=== PATIENT | male | born 1930 | race Caucasian/White ===

== ENCOUNTER 2019-02-11 10:01 | Observation (INO) | payer OTHER ==
[~2019-02-11] VITALS: Ht 182.9 cm; Wt 105.5 kg
[2019-02-11 10:39] LABS: BASOPHILS ABSOLUTE AUTO 0.05 K/mm3 (0.00-0.23); BASOPHILS PERCENT AUTO 1 % (0-2); EOSINOPHILS ABSOLUTE AUTO 0.13 K/mm3 (0.00-0.68); EOSINOPHILS PERCENT AUTO 2 % (0-6); Hematocrit 42.4 % (37.0-53.0); IMMATURE GRAN ABSOLUTE AUTO 0.01 K/mm3 (0.00-0.10); IMMATURE GRAN PERCENT AUTO 0 % (0-1); LYMPHOCYTES ABSOLUTE AUTO 1.02 K/mm3 (0.84-5.20); LYMPHOCYTES PERCENT AUTO 18 % (21-46); MONOCYTES ABSOLUTE AUTO 0.48 K/mm3 (0.16-1.47); MONOCYTES PERCENT AUTO 9 % (4-13); Mean Corpuscular HGB 29.9 pg (26.0-34.0); Mean Corpuscular Volume 91 fL (80-100); NEUTROPHILS ABSOLUTE AUTO 3.96 K/mm3 (1.96-9.15); NEUTROPHILS PERCENT AUTO 70 % (41-73); Platelet Count 123 K/mm3 (150-400); RDW Coefficient Variation 13.2 % (11.7-14.2); RDW Standard Deviation 43.4 fL (35.1-46.3); Red Blood Cell Count 4.68 M/mm3 (4.30-5.90); White Blood Cell Count 5.65 K/mm3 (4.00-11.30)
[2019-02-11 10:52] LABS: Alanine Aminotransfer (ALT/SGP 12 U/L (12-78); Albumin, Blood 3.1 g/dL (3.4-5.0); Alk Phos 54 U/L (50-136); Anion Gap 6 mmol/L (6-16); Aspartate Aminotrans (AST/SGOT 13 U/L (12-37); Bilirubin, Total 0.5 mg/dL (0.1-1.0); Blood Urea Nitrogen 21 mg/dL (8-24); CO2, Blood 30 mmol/L (21-32); Calcium, Blood 8.3 mg/dL (8.5-10.1); Chloride, Blood 106 mmol/L (98-108); Creatinine, Blood 1.31 mg/dL (0.60-1.20); Globulin, Blood 3.1 g/dL (2.2-4.0); Glomerular Filtration Rate 55 (60-); Glucose, Blood 194 mg/dL (70-99); Potassium, Blood 4.1 mmol/L (3.5-5.5); Sodium, Blood 142 mmol/L (136-145); Total Protein, Blood 6.2 g/dL (6.4-8.2); Troponin I <0.015 ng/mL (0.000-0.040)
[2019-02-11] MEDS ORDERED: AMLO5 PO (12:06)
[2019-02-11] MEDS ORDERED: CALCIUM 500 +1 EAC3 PO (12:07)
[2019-02-11] MEDS ORDERED: ASPI81CH PO (12:07)
[2019-02-11] MEDS ORDERED: CYAN500 PO (12:07)
[2019-02-11] MEDS ORDERED: ENAL20 PO (12:08)
[2019-02-11] MEDS ORDERED: FURO20 PO (12:08)
[2019-02-11] MEDS ORDERED: DULO60 PO (12:08)
[2019-02-11] MEDS ORDERED: Gabapentin600 MG PO (12:09)
[2019-02-11] MEDS ORDERED: Norco 10-325 T1 EACH PO (12:09)
[2019-02-11] MEDS ORDERED: GLIP10 PO (12:09)
[2019-02-11] MEDS ORDERED: NITR.4SL SL (12:10)
[2019-02-11] MEDS ORDERED: Pravachol80 MG PO (12:10)
[2019-02-11] MEDS ORDERED: METO50 PO (12:10)
[2019-02-11 12:51] LABS: Source, Urine Clean Catch
[2019-02-11 12:55] LABS: Bilirubin, Urine Neg (Neg); Blood, Urine 3+ (Neg); Glucose Qualitative, Urine Neg (Neg); Ketones, Urine Neg (Neg); Leukocyte Esterase, Urine 3+ (Neg); Nitrite, Urine Neg (Neg); Protein, Urine 2+ (Neg); Specific Gravity, Urine 1.015 (1.003-1.022); Urobilinogen, Urine NORM (Normal); pH, Urine 6.5 (5.0-8.0)
[2019-02-11 13:05] LABS: Appearance, Urine Hazy (Clear); Color, Urine Yellow (P-Yellow)
[2019-02-11 13:06] LABS: Bacteria Few /hpf; Red Blood Cells, Urine TNTC /hpf (0-2); Squamous Epithelial Cells Not Seen /hpf (Few); White Blood Cells, Urine TNTC /hpf (0-5)
[2019-02-11] MEDS ORDERED: GABA600 PO (14:01)
--- NOTE | 2019-02-11 19:34 | NUR ---
RAPID RESPONSE CALLED PT APPEARED TO GO UNCONSCIOUS WITH DROP IN HEART RATE OF 37. TRANSFERRED TO PCU.
[2019-02-11 20:19] LABS: Magnesium, Blood 2.3 mg/dL (1.6-2.4); Troponin I <0.015 ng/mL (0.000-0.040)
--- NOTE | 2019-02-11 22:30 | NUR ---
2000 ARRIVE TO PCU VIA BED. PATIENT A&O DENIES SYNCOPE OR DIZZIENESS. SALINE STARTED, FAMILY IN ROOM QUESTIONS ANSWERED.
--- NOTE | 2019-02-11 22:33 | NUR ---
2029 PATIENT REQUESTING TO FINISH DINNER, AT 2039 BROTHER CAME OUT OF ROOM SAYING PATIENT WAS HAVING AN EPISODE. PATIENT STATES HE WAS FEELING FUNNY, BP 83/45, HR IN THE 50'S. 250 NS BOLUS GIVEN PATIENT WITH RESOLVE OF SYMPTOMS, BP UP TO 138/60, HR STILL IN THE 50'S. NS RETURNED TO 100CC\HR, DINNER TRY REMOVED FROM ROOM CALL LIGHT IN REACH, BED IN LOW POSITION AND BROTHER STAYING THE NIGHT IN ROOM. WILL CONTINUE TO MONITOR.
[2019-02-12 04:47] LABS: BASOPHILS ABSOLUTE AUTO 0.05 K/mm3 (0.00-0.23); BASOPHILS PERCENT AUTO 1 % (0-2); EOSINOPHILS ABSOLUTE AUTO 0.08 K/mm3 (0.00-0.68); EOSINOPHILS PERCENT AUTO 2 % (0-6); Hematocrit 42.3 % (37.0-53.0); Hemoglobin 13.7 g/dL (13.5-17.5); IMMATURE GRAN ABSOLUTE AUTO 0.01 K/mm3 (0.00-0.10); IMMATURE GRAN PERCENT AUTO 0 % (0-1); LYMPHOCYTES ABSOLUTE AUTO 1.29 K/mm3 (0.84-5.20); LYMPHOCYTES PERCENT AUTO 24 % (21-46); MONOCYTES ABSOLUTE AUTO 0.41 K/mm3 (0.16-1.47); MONOCYTES PERCENT AUTO 8 % (4-13); Mean Corpuscular HGB 29.7 pg (26.0-34.0); Mean Corpuscular HGB Conc 32.4 g/dL (31.5-36.5); Mean Corpuscular Volume 92 fL (80-100); Mean Platelet Volume 10.3 fL (9.1-12.4); NEUTROPHILS ABSOLUTE AUTO 3.47 K/mm3 (1.96-9.15); NEUTROPHILS PERCENT AUTO 65 % (41-73); Platelet Count 118 K/mm3 (150-400); RDW Coefficient Variation 13.2 % (11.7-14.2); RDW Standard Deviation 44.2 fL (35.1-46.3); Red Blood Cell Count 4.61 M/mm3 (4.30-5.90); White Blood Cell Count 5.31 K/mm3 (4.00-11.30)
[2019-02-12 05:07] LABS: Albumin, Blood 2.8 g/dL (3.4-5.0); Bilirubin, Total 0.5 mg/dL (0.1-1.0); Bun/Creatinine Ratio 15.7 (12.0-20.0); Calcium, Blood 8.1 mg/dL (8.5-10.1); Creatinine, Blood 1.34 mg/dL (0.60-1.20); Globulin, Blood 2.9 g/dL (2.2-4.0); Potassium, Blood 4.5 mmol/L (3.5-5.5); Total Protein, Blood 5.7 g/dL (6.4-8.2)
--- NOTE | 2019-02-12 06:47 | NUR ---
SHIFT SUMMARY PT SLEPT T/O SHIFT. NO COMPLAINTS OF PAIN OR DISCOMFORT. NO ACUTE CHANGES TO VITALS, LOC OR MENTATION SINCE SHIFT TAKE OVER AT 0000. PT WILL CONTINUE TO BE MONITORED UNTIL HANDOFF TO DAYSHIFT RN.
--- NOTE | 2019-02-12 15:33 | NUR ---
Initial Visit: Palliative Care Consult for Advanced Care Planning. Pt is A&Ox2. Pt is unable to verbalize reason for hospital stay and unable to give apprriate month or year. Pt denies pain, dyspnea, anxiety, and nausea at this time. Pt's brother Constantino is present during visit. Received verbal permission from Pt to have discussion with brother present. Pt reports that he lives at home with his Gerald who is also blind. Pt is of [employer] and served in [facility] during [employer]. Constantino is Pt's and Pt's primary caregiver. Constantino cooks breakfast for them and manages their medications. Also does errands for them and takes Pt to his doctor appointments. Constantino reports Pt and his receive meals on wheels. Currently Pt is in the process to establish caregivers from the [place]. Currently Pt ambulates with a can, bathes himself, and feeds himself. Pt does require assistance with clothes to be laid out for him to dress. Educated Pt and Constantino on disease process for cardiac and dementia. Encouraged Constantino to be present for all doctor appoinments to have routine conversation regarding Pt's disease process in order to plan accordingly. Discussed the importance of planning ahead as the disease process takes it coarse. Pt and family report no concerns at this time and express appreciation of visit. Palliative Care will remain available
[2019-02-13 04:32] LABS: BASOPHILS ABSOLUTE AUTO 0.03 K/mm3 (0.00-0.23); BASOPHILS PERCENT AUTO 1 % (0-2); EOSINOPHILS ABSOLUTE AUTO 0.07 K/mm3 (0.00-0.68); EOSINOPHILS PERCENT AUTO 2 % (0-6); Hematocrit 36.3 % (37.0-53.0); Hemoglobin 11.8 g/dL (13.5-17.5); IMMATURE GRAN ABSOLUTE AUTO 0.01 K/mm3 (0.00-0.10); IMMATURE GRAN PERCENT AUTO 0 % (0-1); LYMPHOCYTES PERCENT AUTO 32 % (21-46); MONOCYTES ABSOLUTE AUTO 0.38 K/mm3 (0.16-1.47); MONOCYTES PERCENT AUTO 10 % (4-13); Mean Corpuscular HGB 29.8 pg (26.0-34.0); Mean Corpuscular HGB Conc 32.5 g/dL (31.5-36.5); Mean Corpuscular Volume 92 fL (80-100); Mean Platelet Volume 9.4 fL (9.1-12.4); NEUTROPHILS ABSOLUTE AUTO 2.11 K/mm3 (1.96-9.15); NEUTROPHILS PERCENT AUTO 56 % (41-73); Platelet Count 109 K/mm3 (150-400); RDW Coefficient Variation 13.1 % (11.7-14.2); RDW Standard Deviation 43.9 fL (35.1-46.3); Red Blood Cell Count 3.96 M/mm3 (4.30-5.90)
[2019-02-13 04:52] LABS: Alanine Aminotransfer (ALT/SGP 9 U/L (12-78); Albumin, Blood 2.7 g/dL (3.4-5.0); Alk Phos 43 U/L (50-136); Anion Gap 4 mmol/L (6-16); Aspartate Aminotrans (AST/SGOT 17 U/L (12-37); Bilirubin, Total 0.4 mg/dL (0.1-1.0); Blood Urea Nitrogen 17 mg/dL (8-24); CO2, Blood 29 mmol/L (21-32); Calcium, Blood 7.9 mg/dL (8.5-10.1); Chloride, Blood 111 mmol/L (98-108); Creatinine, Blood 1.21 mg/dL (0.60-1.20); Globulin, Blood 2.6 g/dL (2.2-4.0); Glomerular Filtration Rate >60 (60-); Glucose, Blood 164 mg/dL (70-99); Potassium, Blood 4.1 mmol/L (3.5-5.5); Sodium, Blood 144 mmol/L (136-145); Total Protein, Blood 5.3 g/dL (6.4-8.2)
--- NOTE | 2019-02-13 06:19 | NUR ---
SHIFT SUMMARY- PT HAS REMAINED AOX4 THROUGHOUT SHIFT. VSS. PLEASANT AND COOPERATIVE WITH CARE. PT HAS HAD NO EPISODES OF DECREASED LOC OR MENTATION CHANGES SINCE CARE ASSUMED LAST NIGHT. PT HAS REMAINED ON BEDREST AND ABLE TO TURN SELF WHILE SLEEPING. PT HAS RESTED WELL THROUGHOUT NIGHT WITH FAMILY MEMBER AT BEDSIDE. DENIES PAIN THROUGHOUT NIGHT. NO OTHER CHANGES FROM SHIFT ASSESSMENT. WILL CONTINUE TO MONITOR AND REPORT TO ONCOMING SHIFT RN. BED IN LOW POSITION,CALL LIGHT IN REACH.
[2019-02-13] MEDS ORDERED: ACET325 PO (16:50)
[2019-02-13] MEDS ORDERED: TAMS.4ER PO (16:51)
--- NOTE | 2019-02-13 17:35 | NUR ---
PT DC'D HOME IN STABLE CONDITION. BROTHER HERE TO PACKAGE LINE RELIEF OPERATOR PT. DISCUSSED DISCHARGE INSTRUCTIONS AND MEDICATIONS WITH PT AND BROTHER. FOLLOW UP APPT SCHEDULED WITH PRIMARY CARE. BROTHER STATES THAT PT ALSO FOLLOWS WITH [facility]. NEW MEDS SENT TO [facility]OD AT [facility]. BROTHER WILL TAKE PT TO PACKAGE LINE RELIEF OPERATOR MEDS AT [facility]. PT OUT TO VEHICLE VIA WHEELCHAIR.
== END 2019-02-13 17:49 | disposition home or self-care (01) ==
LOC: ER 10:01 → MEDS 10:02 → PCU 14:30 → MEDS 15:56 → PCU 19:32
PROVIDERS: Emergency Medicine; Nurse Practitioner Acute Care; ADMIT Family Medicine
DX: I95.1 Orthostatic hypotension (principal); E86.9 Volume depletion, unspecified; R00.1 Bradycardia, unspecified; E11.22 Type 2 diabetes mellitus with diabetic chronic kidney disease; I12.9 Hypertensive chronic kidney disease with stage 1 through stage 4 chronic kidney disease, or unspecified chronic kidney disease; N18.3 Chronic kidney disease, stage 3 (moderate); E66.01 Morbid (severe) obesity due to excess calories; F03.90 Unspecified dementia, unspecified severity, without behavioral disturbance, psychotic disturbance, mood disturbance, and anxiety; H54.7 Unspecified visual loss; I25.10 Atherosclerotic heart disease of native coronary artery without angina pectoris; E78.5 Hyperlipidemia, unspecified; G93.40 Encephalopathy, unspecified; N13.9 Obstructive and reflux uropathy, unspecified; Z87.891 Personal history of nicotine dependence; Z95.1 Presence of aortocoronary bypass graft; Z79.82 Long term (current) use of aspirin; Z79.899 Other long term (current) drug therapy; Z68.31 Body mass index [BMI] 31.0-31.9, adult
CPT/HCPCS: 36415; 51702; 70450; 71045; 80053; 81001; 82947; 83036; 83735; 83880; 84443; 84484; 85025; 87086; 92950; 93005; 93010; 93306; 93880; 96361; 96365; 96372; 96375; 99285-25; G0378; J0696; J1644; J2405; J7030

== ENCOUNTER 2019-08-13 10:02 | Emergency (ER) | payer OTHER ==
[~2019-08-13] VITALS: Ht 180.3 cm; Wt 104.3 kg
[~2019-08-13 10:02] MED LIST: ACET325 PO; AMLO5 PO; Aspir 8181 MG PO; CALCIUM 500 +1 EAC3 PO; CYAN500 PO; DULO60 PO; ENAL20 PO; FURO20 PO; GABA600 PO; GLIP10 PO; HORIZANT600 MG PO; METF500C PO; METO50 PO; NITR.4SL SL; Norco 10-325 T1 EACH PO; Pravachol80 MG PO; TAMS.4ER PO
[2019-08-13 10:52] LABS: BASOPHILS ABSOLUTE AUTO 0.03 K/mm3 (0.00-0.23); BASOPHILS PERCENT AUTO 1 % (0-2); EOSINOPHILS ABSOLUTE AUTO 0.08 K/mm3 (0.00-0.68); EOSINOPHILS PERCENT AUTO 2 % (0-6); Hematocrit 43.4 % (37.0-53.0); Hemoglobin 14.4 g/dL (13.5-17.5); IMMATURE GRAN PERCENT AUTO 0 % (0-1); LYMPHOCYTES ABSOLUTE AUTO 1.04 K/mm3 (0.84-5.20); LYMPHOCYTES PERCENT AUTO 28 % (21-46); MONOCYTES ABSOLUTE AUTO 0.42 K/mm3 (0.16-1.47); MONOCYTES PERCENT AUTO 11 % (4-13); Mean Corpuscular HGB 29.9 pg (26.0-34.0); Mean Corpuscular HGB Conc 33.2 g/dL (31.5-36.5); Mean Corpuscular Volume 90 fL (80-100); Mean Platelet Volume 9.6 fL (9.1-12.4); NEUTROPHILS ABSOLUTE AUTO 2.17 K/mm3 (1.96-9.15); NEUTROPHILS PERCENT AUTO 58 % (41-73); Platelet Count 115 K/mm3 (150-400); RDW Coefficient Variation 13.1 % (11.7-14.2); RDW Standard Deviation 42.8 fL (35.1-46.3); Red Blood Cell Count 4.82 M/mm3 (4.30-5.90); White Blood Cell Count 3.74 K/mm3 (4.00-11.30)
[2019-08-13 11:09] LABS: Albumin, Blood 3.3 g/dL (3.4-5.0); Bilirubin, Total 0.8 mg/dL (0.1-1.0); Bun/Creatinine Ratio 15.5 (12.0-20.0); Calcium, Blood 8.6 mg/dL (8.5-10.1); Creatinine, Blood 1.42 mg/dL (0.60-1.20); Globulin, Blood 3.3 g/dL (2.2-4.0); Magnesium, Blood 2.2 mg/dL (1.6-2.4); Total Protein, Blood 6.6 g/dL (6.4-8.2)
[2019-08-13] MEDS ORDERED: DONE5 PO (11:22)
[2019-08-13] MEDS ORDERED: ACET325 PO (11:23)
[2019-08-13] MEDS ORDERED: Norco 10-325 T1 EACH PO (11:23)
[2019-08-13] MEDS ORDERED: NITR.4SL SL (11:23)
== END 2019-08-13 11:54 | disposition home or self-care (01) ==
LOC: ER 10:02
PROVIDERS: Internal Medicine
DX: I95.9 Hypotension, unspecified (principal); E11.9 Type 2 diabetes mellitus without complications; Z86.73 Personal history of transient ischemic attack (TIA), and cerebral infarction without residual deficits; Z87.891 Personal history of nicotine dependence; Z79.899 Other long term (current) drug therapy; Z79.82 Long term (current) use of aspirin; Z79.84 Long term (current) use of oral hypoglycemic drugs
CPT/HCPCS: 36415; 80053; 83735; 85025; 99284

== ENCOUNTER 2019-09-27 11:35 | Emergency (ER) | payer OTHER ==
[~2019-09-27] VITALS: Ht 180.3 cm; Wt 90.7 kg
[~2019-09-27 11:35] MED LIST changes: +DONE5 PO
[2019-09-27] MEDS ORDERED: CALCIUM 500 +1 EAC3 PO (11:49)
[2019-09-27 12:49] LABS: BASOPHILS ABSOLUTE AUTO 0.02 K/mm3 (0.00-0.23); BASOPHILS PERCENT AUTO 1 % (0-2); EOSINOPHILS ABSOLUTE AUTO 0.09 K/mm3 (0.00-0.68); EOSINOPHILS PERCENT AUTO 2 % (0-6); Hematocrit 40.2 % (37.0-53.0); Hemoglobin 13.3 g/dL (13.5-17.5); IMMATURE GRAN ABSOLUTE AUTO 0.02 K/mm3 (0.00-0.10); IMMATURE GRAN PERCENT AUTO 1 % (0-1); LYMPHOCYTES ABSOLUTE AUTO 0.96 K/mm3 (0.84-5.20); LYMPHOCYTES PERCENT AUTO 22 % (21-46); MONOCYTES ABSOLUTE AUTO 0.48 K/mm3 (0.16-1.47); MONOCYTES PERCENT AUTO 11 % (4-13); Mean Corpuscular HGB Conc 33.1 g/dL (31.5-36.5); Mean Corpuscular Volume 91 fL (80-100); Mean Platelet Volume 10.3 fL (9.1-12.4); NEUTROPHILS ABSOLUTE AUTO 2.87 K/mm3 (1.96-9.15); NEUTROPHILS PERCENT AUTO 65 % (41-73); Platelet Count 141 K/mm3 (150-400); RDW Standard Deviation 42.9 fL (35.1-46.3); Red Blood Cell Count 4.43 M/mm3 (4.30-5.90); White Blood Cell Count 4.44 K/mm3 (4.00-11.30)
[2019-09-27 14:09] LABS: Magnesium, Blood 2.2 mg/dL (1.6-2.4)
[2019-09-27 14:10] LABS: Alanine Aminotransfer (ALT/SGP 12 U/L (12-78); Albumin, Blood 3.1 g/dL (3.4-5.0); Alk Phos 61 U/L (50-136); Anion Gap 4 mmol/L (6-16); Aspartate Aminotrans (AST/SGOT 11 U/L (12-37); Bilirubin, Total 0.4 mg/dL (0.1-1.0); Blood Urea Nitrogen 21 mg/dL (8-24); Bun/Creatinine Ratio 15.9 (12.0-20.0); CO2, Blood 28 mmol/L (21-32); Calcium, Blood 8.5 mg/dL (8.5-10.1); Chloride, Blood 106 mmol/L (98-108); Creatinine, Blood 1.32 mg/dL (0.60-1.20); Glomerular Filtration Rate 55 (60-); Glucose, Blood 264 mg/dL (70-99); Potassium, Blood 4.5 mmol/L (3.5-5.5); Sodium, Blood 138 mmol/L (136-145); Total Protein, Blood 6.1 g/dL (6.4-8.2)
[2019-09-27 14:14] LABS: Troponin I <0.015 ng/mL (0.000-0.040)
== END 2019-09-27 15:11 | disposition home or self-care (01) ==
LOC: ER 11:35
PROVIDERS: Emergency Medicine
DX: R07.9 Chest pain, unspecified (principal); R00.1 Bradycardia, unspecified; E11.9 Type 2 diabetes mellitus without complications; I48.91 Unspecified atrial fibrillation; I25.2 Old myocardial infarction; Z88.0 Allergy status to penicillin; Z88.8 Allergy status to other drugs, medicaments and biological substances; Z88.1 Allergy status to other antibiotic agents; Z79.899 Other long term (current) drug therapy; Z79.82 Long term (current) use of aspirin; Z86.73 Personal history of transient ischemic attack (TIA), and cerebral infarction without residual deficits
CPT/HCPCS: 36415; 71046; 80053; 83735; 84484; 85025; 93005; 93010; 99285-25

== ENCOUNTER 2020-02-29 09:37 | Day surgery (SDC) | payer OTHER ==
[~2020-02-29] VITALS: Ht 180.3 cm; Wt 101.0 kg
[~2020-02-29 09:37] MED LIST changes: +Pravachol40 MG PO; -Pravachol80 MG PO
[2020-02-29] MEDS ORDERED: ENAL10 PO (13:48)
[2020-02-29] MEDS ORDERED: HORIZANT300 MG PO (13:50)
--- NOTE | 2020-02-29 14:35 | NUR ---
The pt arrived to PCU 2 from the [facility], with pressure dressing in place over his right chest wall. He is awake, alert, and oriented, and responding appropriately. His brother is with him right now, helping him to eat some lunch. He has no complaints of pain and his vital signs are stable. senior engineering tech was here and portable chest xray was completed.
--- NOTE | 2020-02-29 16:12 | NUR ---
Right chest wall dressing remains clean, dry and intact. Pt was assisted to stand on the side of the bed to urinate. His brother is at the bedside.
--- NOTE | 2020-02-29 16:13 | NUR ---
SCDs and sling were replaced after the pt was assisted back to bed after standing to urinate.
--- NOTE | 2020-03-01 05:55 | NUR ---
SHIFT SUMMARY PATIENT SLEPT WELL THROUGH NIGHT. HAD TO BE REMINDED SEVERAL TIMES TO KEEP RIGHT ARM STILL, AM CONCERNED FOR COMPLIANCE WITH SLING UPON DISCHARGE TO HOME. INSERTION SITE AND DRESSING STILL APPEAR CLEAN, DRY, AND INTACT. NO C/O PAIN. ASSESSMENT IS CHARTED. VSS. WILL CONTINUE TO MONITOR.
--- NOTE | 2020-03-01 11:53 | NUR ---
Upon receiving a referral for spiritual care, I visit patient. Patient is sitting up in bed and alert with brother, Constantino, bedside. Patient tells me that he love God and Lars and he is going to heaven when he dies. He says that is about all he knows about church. Patient struggles to see and hear and so Constantino fills in some details as they tell me about their life and patient's many trips to hospitals. I listen empathically and provide a calming presence and prayer. Patient responds well and shows signs of an elevated mood. I will continue to remain available to patient and family.
--- NOTE | 2020-03-01 13:18 | NUR ---
PCU DISCHARGE SUMMARY PATIENT REMAINED ALERT AND ORIENTED TO SELF AND FAMILY (BASELINE). PATIENTS BROTHER, PRIMARY CAREGIVER/ROOM MATE AT BEDSIDE DURING EDUCATION FROM LANDCARE FACILITATOR, MD MCKNIGHT, PATIENTS CAREGIVER AND PATIENT VERBALIZED UNDERSTANDING OF VERBAL AND WRITTEN INSTRUCTIONS. PATIENT LEFT VIA PERSONAL WHEELCHAIR HOME WITH BROTHER. ROOM AIR T/O SHIFT. SINUS TO SINUS PACED. NO ACUTE CHANGES AND VSS T/O SHIFT. PATIENT LEFT FOR HOME WITH BELONGINGS WITH NO DISTRESS NOTED.
== END 2020-03-01 12:47 | disposition home or self-care (01) ==
LOC: MHTC 09:37 → PCU 11:32 → MHTC 03-01 12:47
DX: I49.5 Sick sinus syndrome (principal); I10 Essential (primary) hypertension; I25.10 Atherosclerotic heart disease of native coronary artery without angina pectoris; E78.5 Hyperlipidemia, unspecified; F03.90 Unspecified dementia, unspecified severity, without behavioral disturbance, psychotic disturbance, mood disturbance, and anxiety; F43.10 Post-traumatic stress disorder, unspecified; E11.51 Type 2 diabetes mellitus with diabetic peripheral angiopathy without gangrene; Z95.1 Presence of aortocoronary bypass graft; Z79.899 Other long term (current) drug therapy; Z79.82 Long term (current) use of aspirin; Z88.8 Allergy status to other drugs, medicaments and biological substances; Z88.0 Allergy status to penicillin
CPT/HCPCS: 33207; 71045; 71046; 76937; 99152; 99153; A9270; A9270-GY; C1786; C1894; C1898; J1644; J2250; J3010; J3370; J7030; J7040; J7050

== ENCOUNTER 2020-06-29 11:56 | Emergency (ER) | payer OTHER ==
[~2020-06-29] VITALS: Ht 180.3 cm; Wt 99.8 kg
[~2020-06-29 11:56] MED LIST changes: +ENAL10 PO; +HORIZANT300 MG PO
[2020-06-29 12:40] LABS: BASOPHILS ABSOLUTE AUTO 0.03 K/mm3 (0.00-0.23); BASOPHILS PERCENT AUTO 1 % (0-2); EOSINOPHILS ABSOLUTE AUTO 0.07 K/mm3 (0.00-0.68); EOSINOPHILS PERCENT AUTO 2 % (0-6); Hematocrit 32.5 % (37.0-53.0); Hemoglobin 10.3 g/dL (13.5-17.5); IMMATURE GRAN ABSOLUTE AUTO 0.01 K/mm3 (0.00-0.10); IMMATURE GRAN PERCENT AUTO 0 % (0-1); LYMPHOCYTES ABSOLUTE AUTO 0.83 K/mm3 (0.84-5.20); LYMPHOCYTES PERCENT AUTO 24 % (21-46); MONOCYTES ABSOLUTE AUTO 0.32 K/mm3 (0.16-1.47); MONOCYTES PERCENT AUTO 9 % (4-13); Mean Corpuscular HGB 26.8 pg (26.0-34.0); Mean Corpuscular HGB Conc 31.7 g/dL (31.5-36.5); Mean Corpuscular Volume 84 fL (80-100); Mean Platelet Volume 9.7 fL (9.1-12.4); NEUTROPHILS ABSOLUTE AUTO 2.17 K/mm3 (1.96-9.15); NEUTROPHILS PERCENT AUTO 63 % (41-73); Platelet Count 138 K/mm3 (150-400); RDW Coefficient Variation 13.6 % (11.7-14.2); RDW Standard Deviation 41.7 fL (35.1-46.3); Red Blood Cell Count 3.85 M/mm3 (4.30-5.90); White Blood Cell Count 3.43 K/mm3 (4.00-11.30)
[2020-06-29 13:10] LABS: Source, Urine Clean Catch
[2020-06-29 13:10] LABS: Acetaminophen, Random 3.2 ug/mL (10.0-30.0); Alanine Aminotransfer (ALT/SGP 11 U/L (12-78); Albumin/Globulin Ratio 0.9 (0.8-1.8); Alk Phos 60 U/L (50-136); Anion Gap 7 mmol/L (6-16); Aspartate Aminotrans (AST/SGOT 9 U/L (12-37); Bilirubin, Total 0.3 mg/dL (0.1-1.0); Blood Urea Nitrogen 17 mg/dL (8-24); Bun/Creatinine Ratio 14.3 (12.0-20.0); CO2, Blood 26 mmol/L (21-32); Calcium, Blood 8.3 mg/dL (8.5-10.1); Chloride, Blood 107 mmol/L (98-108); Creatinine, Blood 1.19 mg/dL (0.60-1.20); Ethanol (Alcohol), Blood, Med <3 mg/dL; Globulin, Blood 3.3 g/dL (2.2-4.0); Glomerular Filtration Rate >60 (60-); Glucose, Blood 241 mg/dL (70-99); Potassium, Blood 4.3 mmol/L (3.5-5.5); Salicylate <1.7 mg/dL (2.8-20.0); Sodium, Blood 140 mmol/L (136-145); Thyroxine (T4) 6.6 ug/dL (4.5-12.1); Total Protein, Blood 6.3 g/dL (6.4-8.2); Troponin I <0.015 ng/mL (0.000-0.040)
[2020-06-29 13:18] LABS: Bilirubin, Urine Neg (Neg); Blood, Urine 1+ (Neg); Glucose Qualitative, Urine 1+ (Neg); Ketones, Urine Neg (Neg); Leukocyte Esterase, Urine 3+ (Neg); Nitrite, Urine Neg (Neg); Protein, Urine 1+ (Neg); Urobilinogen, Urine 1+ (Normal)
[2020-06-29 13:21] LABS: Appearance, Urine Clear (Clear); Color, Urine Yellow (P-Yellow)
[2020-06-29 13:26] LABS: Bacteria Mod /hpf; Squamous Epithelial Cells Few /hpf (Few); White Blood Cells, Urine 25-50 /hpf (0-5)
[2020-06-29 13:31] LABS: U Amphetamine Screen Not Detected; U Barbituate Screen Not Detected; U Benzodiazapine Screen Not Detected; U Buprenorphine Screen Not Detected; U Cannabinoids Screen Not Detected; U Cocaine Screen Not Detected; U Methadone Screen Not Detected; U Methamphetamine Screen Not Detected; U Opiates Screen Not Detected; U Oxycodone Screen Not Detected; U Phencyclidine Screen Not Detected; U Propoxyphene Screen Not Detected
[2020-06-29] MEDS ORDERED: CEPH500 PO (14:14)
== END 2020-06-29 15:13 | disposition home or self-care (01) ==
LOC: ER 11:56
PROVIDERS: Emergency Medicine
DX: R41.82 Altered mental status, unspecified (principal); N39.0 Urinary tract infection, site not specified; E11.9 Type 2 diabetes mellitus without complications; I48.91 Unspecified atrial fibrillation; Z86.73 Personal history of transient ischemic attack (TIA), and cerebral infarction without residual deficits; Z95.1 Presence of aortocoronary bypass graft; Z79.82 Long term (current) use of aspirin; Z88.0 Allergy status to penicillin; Z88.1 Allergy status to other antibiotic agents; Z88.8 Allergy status to other drugs, medicaments and biological substances; Z87.891 Personal history of nicotine dependence; Z79.899 Other long term (current) drug therapy
CPT/HCPCS: 36415; 70450; 80053; 81001; 84436; 84443; 84484; 85025; 87077; 87086; 87186; 93005; 93010; 96365; 99285-25; G0480; J0696; J7030

== ENCOUNTER 2020-08-17 11:04 | Inpatient (IN) | payer OTHER ==
[~2020-08-17] VITALS: Ht 182.9 cm; Wt 96.5 kg
[~2020-08-17 11:04] MED LIST changes: +CEPH500 PO; +Norco 7.5-3251 EACH PO
[2020-08-17 12:29] LABS: BASOPHILS ABSOLUTE AUTO 0.04 K/mm3 (0.00-0.23); BASOPHILS PERCENT AUTO 1 % (0-2); EOSINOPHILS ABSOLUTE AUTO 0.05 K/mm3 (0.00-0.68); EOSINOPHILS PERCENT AUTO 1 % (0-6); Hematocrit 31.7 % (37.0-53.0); Hemoglobin 9.3 g/dL (13.5-17.5); IMMATURE GRAN ABSOLUTE AUTO 0.01 K/mm3 (0.00-0.10); IMMATURE GRAN PERCENT AUTO 0 % (0-1); LYMPHOCYTES ABSOLUTE AUTO 1.02 K/mm3 (0.84-5.20); LYMPHOCYTES PERCENT AUTO 21 % (21-46); MONOCYTES ABSOLUTE AUTO 0.36 K/mm3 (0.16-1.47); MONOCYTES PERCENT AUTO 7 % (4-13); Mean Corpuscular HGB 24.4 pg (26.0-34.0); Mean Corpuscular HGB Conc 29.3 g/dL (31.5-36.5); Mean Corpuscular Volume 83 fL (80-100); Mean Platelet Volume 10.4 fL (9.1-12.4); NEUTROPHILS ABSOLUTE AUTO 3.41 K/mm3 (1.96-9.15); NEUTROPHILS PERCENT AUTO 70 % (41-73); Platelet Count 156 K/mm3 (150-400); RDW Coefficient Variation 14.2 % (11.7-14.2); RDW Standard Deviation 42.6 fL (35.1-46.3); Red Blood Cell Count 3.81 M/mm3 (4.30-5.90); White Blood Cell Count 4.89 K/mm3 (4.00-11.30)
[2020-08-17 12:30] LABS: Calcium, Ionized (POC) 1.11 mmol/L (1.10-1.46); Chloride (POC) 106 mmol/L (98-108); Creatinine (POC) 1.1 mg/dL (0.8-1.3); Glucose (ISTAT POC) 206 mg/dL (70-99); Hemoglobin (POC) 10.5 g/dL (13.5-17.5); Potassium (POC) 3.7 mmol/L (3.5-5.5); Sodium (POC) 140 mmol/L (135-148); Total CO2 (POC) 21 mmol/L (21-32)
[2020-08-17] MEDS ORDERED: Aspirin EC81 MG PO (12:33)
[2020-08-17] MEDS ORDERED: VITAMIN C500 M3 PO (12:33)
[2020-08-17] MEDS ORDERED: CHLO25B PO (12:34)
[2020-08-17] MEDS ORDERED: CALCIUM 500 +1 EAC3 PO (12:34)
[2020-08-17] MEDS ORDERED: ENAL10 PO (12:34)
[2020-08-17] MEDS ORDERED: FLUO10 PO (12:34)
[2020-08-17] MEDS ORDERED: GLIP10 PO (12:36)
[2020-08-17] MEDS ORDERED: NOVOLIN 70100 UNIT/4 SC ×2 (12:37)
[2020-08-17] MEDS ORDERED: MULTI VITAMIN1 EACH PO (12:39)
[2020-08-17] MEDS ORDERED: METO25 PO (12:39)
[2020-08-17] MEDS ORDERED: DULERA 100 MCG/13 GM INH (12:39)
[2020-08-17] MEDS ORDERED: METF500 PO (12:39)
[2020-08-17] MEDS ORDERED: PYRI100 PO (12:40)
[2020-08-17] MEDS ORDERED: TIOT18 INH (12:40)
[2020-08-17 12:46] LABS: Alanine Aminotransfer (ALT/SGP 9 U/L (12-78); Albumin, Blood 2.8 g/dL (3.4-5.0); Albumin/Globulin Ratio 0.9 (0.8-1.8); Alk Phos 80 U/L (50-136); Anion Gap 7 mmol/L (6-16); Aspartate Aminotrans (AST/SGOT 4 U/L (12-37); Bilirubin, Total 0.3 mg/dL (0.1-1.0); Blood Urea Nitrogen 18 mg/dL (8-24); Bun/Creatinine Ratio 15.8 (12.0-20.0); CO2, Blood 24 mmol/L (21-32); Calcium, Blood 8.1 mg/dL (8.5-10.1); Chloride, Blood 111 mmol/L (98-108); Creatinine, Blood 1.14 mg/dL (0.60-1.20); Globulin, Blood 3.1 g/dL (2.2-4.0); Glomerular Filtration Rate >60 (60-); Glucose, Blood 196 mg/dL (70-99); Potassium, Blood 3.7 mmol/L (3.5-5.5); Sodium, Blood 142 mmol/L (136-145); Total Protein, Blood 5.9 g/dL (6.4-8.2); Troponin I <0.015 ng/mL (0.000-0.040)
[2020-08-17 13:14] LABS: Magnesium, Blood 2.1 mg/dL (1.6-2.4); Phosphorus, Blood 3.1 mg/dL (2.5-4.9)
[2020-08-17 14:51] LABS: Appearance, Urine Hazy (Clear); Bilirubin, Urine Neg (Neg); Blood, Urine 4+ (Neg); Color, Urine Yellow (P-Yellow); Glucose Qualitative, Urine 2+ (Neg); Ketones, Urine 1+ (Neg); Leukocyte Esterase, Urine 3+ (Neg); Nitrite, Urine Pos (Neg); Protein, Urine 2+ (Neg); Urobilinogen, Urine 2+ (Normal); pH, Urine 6.5 (5.0-8.0)
[2020-08-17 15:37] LABS: Amorphous Light (0-Heavy); Bacteria Many /hpf; Hyaline Casts 0-2 /lpf (0-2); Red Blood Cells, Urine 25-50 /hpf (0-2); Squamous Epithelial Cells Few /hpf (Few)
--- NOTE | 2020-08-17 17:55 | NUR ---
ATTEMPTED TO CALL BROTHER X2. PT ADMITTED WITH LEFT HEARING AID ONLY, UPPER DENTURE ONLY, AND BACK BRACE IN PLACE. UNKNOWN ORDERS FOR BACK BRACE.
--- NOTE | 2020-08-17 21:32 | NUR ---
08/17/202049 PT SHAKING AND C/O "FREEZING COLD". WARM BLANKET AND HOT TEA GIVEN. INFORMED HIM THAT I WOULD BE STARTING HIS ANTIBIOTIC FOR HIS BLADDER INFECTION. HE STATES YES BUT CONTINUES TO REPEAT "MY FEET ARE COLD." PT NEEDS FREQEUNT REMINDERS. BED ALARM ON. PT ID LEGALLY BLIND. CALL BAEZ IN HAND AND REMINDED HOW TO USE. WARM KPAD TO FEET APPLIED.
--- NOTE | 2020-08-17 22:35 | NUR ---
08/17/20 2230 HEART DYE COLORIST DYERJASE BROWN CALLED TO STATE THAT PT CONVERTED TO ATRIAL FIB AT 113 AFTER VOMITING EPISODE AND SINUS TACH AT AROUND 2200.PT ASYMPTOMATIC. HISTORY OF ATRIAL FIB.
--- NOTE | 2020-08-18 03:50 | NUR ---
08/18/20 0320 RN HEARD "VELCRO NOISE IN ROOM. PT PULLING AT BACK BRACE VELCO STRAPES. RE-ORINTED TO SURROUNDINGS AND TO LEAVE BACK BRACE ON. RN LOOSENED BRACE AND CHECKED SKIN UNDERNEATH, RN RE-APPLIED STRAPES AND REPOSITIONED PT TO LEFT SIDE WITH PILLOWS. PT DENIES ANY PAIN OR S/S AT THIS TIME. VITALS RECHECKED. HEART MONITOR AT "ATRIAL FIB IN THE 70-80 RANGE" PER HEART HUMAN INSIGHTS LEAD ADS MARKETINGJASE BROWN. RN HAS BEEN LOG-ROLLING PT PER BROTHER'S REQUEST BECAUSE OF BACK INJURY.
--- NOTE | 2020-08-18 05:07 | NUR ---
08/18/20 0503 RN UPDATED ON-CALL MD ON PT'S VITALS WITH BP AT 85/41. ALSO INFORMED HER OF HEART MONITOR SHOWING "ATRIAL FIB BETWEEN 70-80"S. TEMP WAS UP EARLIER AND DOWN TO 99.8 AT PRESENT. PT TAKING ORAL INTAKE WELL. BLOOD AND URINE CULTURES DONE IN ER. PT REMAINS CONFUSED TO ALL BUT SELF. RE-ORIENTED FREQUENTLY. BED ALARM ON. VOIDING QS. IV FLUIDS AT 75ML/HOUR. Back brace on all shift.
--- NOTE | 2020-08-18 06:12 | NUR ---
08/18/20 0550 PT PULLED OUT IV AND HEART MONITOR PATCHES AND PADS. STATES HE THOUGHT HE WAS AT HOME AND DID NOT NEED THEM. IV FLUIDS SWITCHED TO LEFT HAND IV.
--- NOTE | 2020-08-18 07:35 | NUR ---
08/18/20 0640 VIDEO DOUGH MIXER HELPER CALLED TO INFORM RN THAT PT IS PULLING OFF DRESSING OVER OTHER IV. PT CONFUSED. RN RE-ORIENTED PT TO SURROUNDING AND REASON FOR IV. RN PAGED ON-CALL MD FOR BILATERAL SOFT WRIST RESTRAINTS. ADAN. SOFT WRIST RESTRAINTS APPLIED AND INFORMED PT OF REASONS FOR THEM.
[2020-08-18] MEDS ORDERED: Pravachol40 MG PO (12:38)
[2020-08-18] MEDS ORDERED: GABA300 PO (12:39)
[2020-08-18] MEDS ORDERED: DULO60 PO (12:40)
[2020-08-18] MEDS ORDERED: Vitamin B-121000 MCG PO (12:41)
[2020-08-18] MEDS ORDERED: TAMS.4ER PO (12:41)
[2020-08-18] MEDS ORDERED: Norco 5-325 Ta1 EACH PO (12:49)
--- NOTE | 2020-08-18 14:36 | NUR ---
SHIFT SUMMARY PT AWAKE DURING SHIFT REPORT, RESTING QUIETLY WITH TV ON. PT VERY FORGETFUL, NEEDING FREQUENT REMINDERS. PT LOOKING FOR HIS LOWER DENTURES. PER SHIFT REPORT, PT DID NOT COME UP FROM ER WITH LOWER DENTURES OR PAJAMA BOTTOMS. PER REPORT, PT ALSO BLIND BUT ABLE TO FEED HIMSELF IF SET UP. PT DID WELL WITH ALL MEALS WHEN TOLD PLACEMENT OF FOOD. PT'S BROTHER IN THIS AM; PER REPORT, PT'S BROTHER HELPS TO CARE FOR PT AND HIS . PT'S BROTHER MARIA DEL CARMEN STATED THAT HE IS THE ONE WHO HELPS WITH PT'S MEDS. DR ALVES IN TO SEE PT, ATTEMPTING TO CLARIFY HOME MED LIST. PT'S BROTHER WENT HOME TO OBTAIN MEDICATIONS; HOME MED LIST UPDATED AND DR ALVES NOTIFIED WHEN LIST UPDATED. PER NOC SHIFT REPORT, BP ELEVATED AFTER ADMIT. DR EDWARD NOTIFIED FOR BP MEDS. PT'S BP THEN DECREASED, SEE CHART. DR EDWARD NOTIFIED OF DECREASE. DR ALVES ORDERED IVF'S INCREASED WITH PERAMETERS TO INCREASE BP. BP WNL'S AT THIS TIME; SEE CHART. PER SHIFT REPORT, PT PULLING OUT IV SITES AFTER ADMIT. SOFT WRIST RESTRAINTS PLACED PRIOR TO START OF DAY SHIFT. RESTRAINTS ABLE TO BE REMOVED WHILE EATING AND REMAINED OFF WHILE BROTHER HERE. PT UP TO BSC THIS AM FOR VERY LRG BM. PT LATER ALSO ABLE TO AMBULATE TO [facility] FOR SHOWER TODAY. PT'S BROTHER FOUND PT'S LOWER DENTURES AT HOME WHEN HE WENT TO OBTAIN HOME MEDS. BOTH DENTURES NOW WITH PT. PT HAS BEEN VERY PLEASANT AND CO-OP. EEK AND BLIND, BUT ABLE TO MANAGE WITH ASSIST. BED ALARM ON FOR SAFETY. CALL LT IN REACH.
--- NOTE | 2020-08-18 16:19 | NUR ---
TELE MX CALLED TO REPORT PT IN A-FIB OFF AND ON THIS AM AND LATER THIS AFTERNOON HR DOWN TO 64. PT ASYMPTOMATIC, WATCHING TV AND VISITING WITH BROTHER. TELE MX RECENTLY CALLED TO REPORT HR DOWN TO 40'S AND RUNNING VENTRICULAR RATE. STRIP SENT. DR ALVES UPDATED ON PT STATUS. NEW ORDERS GIVEN. PT REMAINS ASYMPTOMATIC. NO C/O. RESTING QUIETLY AT THIS TIME WATCHING TV. IVF'S INFUSING PER EMAR.
--- NOTE | 2020-08-18 20:50 | NUR ---
DR Duron notified of PT aggitation & threats & attempts to kick staff. 1 x order for 0.5 mg iv ativan rx & med given with mild helpful effect. Refused oral rx seroquel or tylenol & all oral intake so far this shift. Continues bilat wrist restraints to prevent removal of medical equipment & falls. Recieving rocephin currently & 1 l NS.
--- NOTE | 2020-08-18 22:46 | NUR ---
pt continues in bilat soft wrist restraints & he continues to have some aggitation. IV ativan 0.5 mg had mild helpful effect but he refused PO seroquel & tylenol then agreed to take them around 2129. He was repositioned & pullup brief changed. He had amall amt of brian urine. 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 He said he enjoys fishing & has had several boats. PT is less aggitated resting with cares channel playing. Less threatening reassurance offered that we are trying to help him feel better.
--- NOTE | 2020-08-18 23:32 | NUR ---
Sitting outside PT's room charting & he appeared to be resting with bilat wrist restraints & remote camera monitoring. Laurel PT pull on his back brace & he had removed his tele monitor Gown & his IV. Discussed the remote camera coverage & lack of call from surveillance system monitor apparently to PT image had been blurred by the darkness. Discussed this with chargeback analyst Tammy & she discussed with housetrailer servicer & we attempted to reproduce effect & PT did appear blurry in darkness. Bathroom door opened for better visualization & verified camera monitor & tele monitor to alert staff of changes RIKY. PT agrees to some oral intake. Reapplied tele gown bilat wrist restraints & will restrat IV riky due to full code status & tele monitor.
--- NOTE | 2020-08-19 03:06 | NUR ---
PT had removed bilat wrist restraint while under close observation & reved 2nd IV, restarted new IV due to tele monitoring full code status, earlier need for IV med for aggitation, antibiotic for UTI & IV fluid. Pt cooperative with IV restart but continues to try to remove restraints & lack insight into current condition & need for treatment & safety. Back fracture with back brace had medicated for suspected pain with no complaints.
--- NOTE | 2020-08-19 05:07 | NUR ---
Elderly MAle with multiple medical problems including CAD hx CABG, spinal fracture in last 3 months, falls, UTI & diabetes continues in bilat soft wrist restraints due to repeated removal of IV lines tele & heis pleasantly confused after initial aggiations & threats to tear this place up & kick staff. Medicated with ativan 0.5 mg iv x 1 with mild decreased agitiation. Took tylenol 650 mg x 1 for back fx pain & serouquel for agitiation . continues to focus on removing restraints & slept only minutes this shift.
[2020-08-19] MEDS ORDERED: ACET325 PO (09:07)
[2020-08-19] MEDS ORDERED: TRAM50 PO (09:10)
--- NOTE | 2020-08-19 09:26 | NUR ---
PT NOTED TO BE AFIB AT 81 THIS AM PER HOUSE BUILDER, SHE REPORTS HE HAS BEEN IN AFIB THIS AM HOWEVER WE WERE TOLD AT APROX 0800 BY ANOTHER PET TRAINING INSTRUCTOR PT WAS SR AT 94. PER DAMARIS PET TRAINING INSTRUCTOR PT IS NOW AFIB. PER REPORT FROM NIGHT RN PT WENT IN AND OUT OF AFIB/SR YESTERDAY WELL. SPOKE WITH DR ORDOÑEZ WHO SPOKE WITH PT AND BROTHER REGARDING THIS AND TREATMENT.
--- NOTE | 2020-08-19 09:31 | NUR ---
DISCUSSED WITH DR ORDOÑEZ CONCERNS REGARDING PT BP. TIAGO STATED HE WILL PUT IN ORDERS TO DC LABETOLOL AND START AN ORAL MEDICATION. HE PREFERS TO GET THE BP STABLE BEFOR DCING PT HOME. 10 MG OF LABETOLOL WAS PROVIDED DUE TO ELEVATED SBP IN THE 200'S. HIP HOP DANCER WAS INFORMED.
[2020-08-19] MEDS ORDERED: GABAPENTIN600 MG PO ×2 (09:52)
[2020-08-19] MEDS ORDERED: HYDR1TAB94 PO (09:53)
--- NOTE | 2020-08-19 16:46 | NUR ---
SHIFT SUMMARY A&O TO SELF AND FAMILY. PT IS CONFUSED MOST OF THE TIME AND CAN BECOME AGITATED. PT WAS IN SOFT RESTRAINTS THIS AM AT THE BEGINNING OF THE SHIFT, HOWEVER RESTRAINTS WERE DISCONTINUED @ APPROX 0845 FOR BREAKFAST. PT VERBALIZED THAT HE WOULD NOT PULL OUT HIS IV OR PULL HIS TELE OFF IF RESTRAINTS REMAINED OFF. PT HAS OCCASIONALLY TRIED TO TAKE OFF HIS TELE BUT WITH REORIENTATION HE WOULD LEAVE IT ALONE. HIS YOUNGER BROTHER WAS ALSO AT BEDSIDE FOR A MAJORITY OF THE DAY WHICH HELPED KEEP PT MORE ORIENTED AND LEFT MEDICAL EQUIPMENT ALONE. BROTHER IS CAREGIVER AT HOME FOR PT AND PT'S . PT DID BECOME AGITATED WITH NURSE STAFF INDUSTRIAL AND BROTHER AT ONE POINT, TIAGO ORDERED ZYPREXA Q4H PRN FOR AGITATION. PT IS NOW RESTING IN BED AND CALM, WHILE OCCASIONALLY TALKING TO SELF. PT DOES NOT USE CALL LIGHT, BUT IS STILL ON CAMERA. BP WAS ELEVATED TODAY AND IV LABETOLOL WAS PROVIDED. TIAGO THEN DC'D LABETOLOL AND ORDERED A COUPLE HEART MEDICATIONS TO START TONIGHT AND NOT DURING DAY SHIFT.
--- NOTE | 2020-08-20 06:46 | NUR ---
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 PT continued on IV rocephin to tx ecoli UTI. PT needs assist encouraged to eat of drink & setup cues & feeding for oral intake. Blind, PT gets minimal sleep despite sedating meds at HS. PT fell & has fx of spine with lumbar brace to be worn at all times. PT needs extensive assist of 2 for bed mobility. High fall risk PT is verified on remote camera monitoring with multiple calls close observation & extra attention needed to prevent falls. He loves to talk & reminisce about his childhood & his Dad having a autoparts wrecking yard & taking him to the & noah for care with auto parts. 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 Up with 1 mod assist FWW MARIE. Called MD for s/sx of urinary retention, takes flomax at home. Straight cath Q 6 hrs [address]VR & [address] cath is greater than [address] cath x 1 for 900 ml. No urgency or frequency since.
[2020-08-20] MEDS ORDERED: MEMA5TAB PO (11:54)
[2020-08-20] MEDS ORDERED: Acerola C500 MG PO (11:54)
[2020-08-20] MEDS ORDERED: METO25 PO (11:55)
[2020-08-20] MEDS ORDERED: Vitamin D2000 UNIT PO (11:56)
[2020-08-20] MEDS ORDERED: MULTI VITAMIN1 EACH PO (11:56)
[2020-08-20] MEDS ORDERED: METF500 PO (11:56)
[2020-08-20] MEDS ORDERED: CIPR500 PO (11:56)
--- NOTE | 2020-08-20 12:14 | NUR ---
PT HAS NOT VOIDED, BLADDER SCAN OF 727. DR ORDOÑEZ AT BEDSIDE TALKING WITH BROTHER. PER DR ORDOÑEZ PLACE KIRAN CATHETER PRIOR TO DISCHARGE AND PT TO DISCHARGE HOME WITH KIRAN. HOME HEALTH TO MANAGE.
[2020-08-20 13:42] LABS: Source, Urine Catheter
--- NOTE | 2020-08-20 13:44 | NUR ---
PT DC'D @ APPROX 1340 BY WHEELCHAIR. LITHOGRAPHING MACHINE OPERATOR PUSHED PT OUT AND WAS ACCOMPANIED BY PT YOUNGER BROTHER/CAREGIVER. DISCHARGE INSTRUCTIONS WERE REVIEWED WITH BROTHER AND HE VERBALIZED UNDERSTANDING. KIRAN WAS PLACED JUST PRIOR TO DC AND A URINALYSIS WAS SENT OFF. 700 ML OF URINE DRAINED AT TIME OF INSERTION. PT AMBULATED TO WHEELCHAIR WITH 2 PERSON ASSIST AND FWW. PT TOLERATED AMBULATION WELL. IV WAS REMOVED AND LOOKED WNL. TELE ALSO REMOVED AND UNIT AIDE WAS INFORMED.
[2020-08-20 14:00] LABS: Appearance, Urine Clear (Clear); Bilirubin, Urine Neg (Neg); Blood, Urine 3+ (Neg); Color, Urine Yellow (P-Yellow); Glucose Qualitative, Urine 3+ (Neg); Ketones, Urine Neg (Neg); Leukocyte Esterase, Urine 2+ (Neg); Nitrite, Urine Neg (Neg); Protein, Urine 1+ (Neg); Specific Gravity, Urine 1.015 (1.003-1.022); Urobilinogen, Urine NORM (Normal)
[2020-08-20 15:01] LABS: Mucus Mod (0-Heavy)
[2020-08-20 15:02] LABS: Bacteria Mod /hpf; Squamous Epithelial Cells Not Seen /hpf (Few)
== END 2020-08-20 13:43 | disposition home health service (06) | DRG 872 ==
LOC: ER 11:04 → MEDS 11:05
PROVIDERS: Emergency Medicine; Family Medicine; ADMIT Internal Medicine
DX: A41.51 Sepsis due to Escherichia coli [E. coli] (principal); E87.2 Acidosis; I48.20 Chronic atrial fibrillation, unspecified; N39.0 Urinary tract infection, site not specified; F03.90 Unspecified dementia, unspecified severity, without behavioral disturbance, psychotic disturbance, mood disturbance, and anxiety; Z79.82 Long term (current) use of aspirin; I10 Essential (primary) hypertension; Z86.73 Personal history of transient ischemic attack (TIA), and cerebral infarction without residual deficits; H54.7 Unspecified visual loss; Z95.5 Presence of coronary angioplasty implant and graft; Z87.891 Personal history of nicotine dependence; Z79.4 Long term (current) use of insulin; I49.5 Sick sinus syndrome; Z95.0 Presence of cardiac pacemaker; E86.0 Dehydration; D63.8 Anemia in other chronic diseases classified elsewhere; I45.10 Unspecified right bundle-branch block; E11.9 Type 2 diabetes mellitus without complications; Z91.81 History of falling; Z78.1 Physical restraint status; R62.7 Adult failure to thrive; R33.9 Retention of urine, unspecified; N32.0 Bladder-neck obstruction; Z23 Encounter for immunization
CPT/HCPCS: 36415; 51702; 70450; 71045; 80047; 80053; 81001; 82947; 83605; 83735; 84100; 84145; 84484; 85014; 85025; 87040; 87077; 87086; 87186; 93005; 93010; 94640; 94760; 96360; 96361; 96365; 96372; 97110; 97162; 97166; 97530; 97535; 99285-25; A9270; A9270-GY; G0008; G0378; J0696; J1650; J2060; J3480; J7030; Q2038

== ENCOUNTER 2020-08-21 10:02 | Emergency (ER) | payer OTHER ==
[~2020-08-21] VITALS: Ht 180.3 cm; Wt 90.7 kg
[~2020-08-21 10:02] MED LIST changes: +Acerola C500 MG PO; +Aspirin EC81 MG PO; +CHLO25B PO; +CIPR500 PO; +DULERA 100 MCG/13 GM INH; +FLUO10 PO; +GABA300 PO; +GABAPENTIN600 MG PO; +HYDR1TAB94 PO; +MEMA5TAB PO; +METF500 PO; +METO25 PO; +MULTI VITAMIN1 EACH PO; +NOVOLIN 70100 UNIT/4 SC; +Norco 5-325 Ta1 EACH PO; +PYRI100 PO; +TIOT18 INH; +TRAM50 PO; +VITAMIN C500 M3 PO; +Vitamin B-121000 MCG PO; +Vitamin D2000 UNIT PO
[2020-08-21 10:34] LABS: BASOPHILS ABSOLUTE AUTO 0.04 K/mm3 (0.00-0.23); BASOPHILS PERCENT AUTO 1 % (0-2); EOSINOPHILS ABSOLUTE AUTO 0.16 K/mm3 (0.00-0.68); EOSINOPHILS PERCENT AUTO 5 % (0-6); Hemoglobin 9.1 g/dL (13.5-17.5); IMMATURE GRAN PERCENT AUTO 0 % (0-1); LYMPHOCYTES ABSOLUTE AUTO 0.79 K/mm3 (0.84-5.20); LYMPHOCYTES PERCENT AUTO 26 % (21-46); MONOCYTES PERCENT AUTO 13 % (4-13); Mean Corpuscular HGB 24.1 pg (26.0-34.0); Mean Corpuscular HGB Conc 29.4 g/dL (31.5-36.5); Mean Corpuscular Volume 82 fL (80-100); Mean Platelet Volume 9.7 fL (9.1-12.4); NEUTROPHILS ABSOLUTE AUTO 1.66 K/mm3 (1.96-9.15); NEUTROPHILS PERCENT AUTO 55 % (41-73); Platelet Count 160 K/mm3 (150-400); RDW Coefficient Variation 14.6 % (11.7-14.2); RDW Standard Deviation 43.7 fL (35.1-46.3); Red Blood Cell Count 3.77 M/mm3 (4.30-5.90); White Blood Cell Count 3.05 K/mm3 (4.00-11.30)
[2020-08-21 10:45] LABS: Alanine Aminotransfer (ALT/SGP 18 U/L (12-78); Albumin, Blood 2.7 g/dL (3.4-5.0); Albumin/Globulin Ratio 0.8 (0.8-1.8); Alk Phos 66 U/L (50-136); Anion Gap 4 mmol/L (6-16); Aspartate Aminotrans (AST/SGOT 17 U/L (12-37); Bilirubin, Total 0.3 mg/dL (0.1-1.0); Blood Urea Nitrogen 17 mg/dL (8-24); Bun/Creatinine Ratio 14.5 (12.0-20.0); CO2, Blood 29 mmol/L (21-32); Calcium, Blood 8.5 mg/dL (8.5-10.1); Chloride, Blood 109 mmol/L (98-108); Creatinine, Blood 1.17 mg/dL (0.60-1.20); Globulin, Blood 3.3 g/dL (2.2-4.0); Glomerular Filtration Rate >60 (60-); Glucose, Blood 217 mg/dL (70-99); Potassium, Blood 4.5 mmol/L (3.5-5.5); Sodium, Blood 142 mmol/L (136-145)
[2020-08-21 10:46] LABS: International Normalized Ratio 0.98; Prothrombin Time Results 10.5 Sec (9.7-11.5)
== END 2020-08-21 14:13 | disposition home or self-care (01) ==
LOC: ER 10:02
PROVIDERS: Emergency Medicine
DX: R29.810 Facial weakness (principal); I95.9 Hypotension, unspecified; N39.0 Urinary tract infection, site not specified; E11.9 Type 2 diabetes mellitus without complications; F03.90 Unspecified dementia, unspecified severity, without behavioral disturbance, psychotic disturbance, mood disturbance, and anxiety; I48.91 Unspecified atrial fibrillation; Z86.73 Personal history of transient ischemic attack (TIA), and cerebral infarction without residual deficits; Z88.0 Allergy status to penicillin; Z88.1 Allergy status to other antibiotic agents; Z79.82 Long term (current) use of aspirin; Z95.1 Presence of aortocoronary bypass graft; Z79.84 Long term (current) use of oral hypoglycemic drugs; Z79.899 Other long term (current) drug therapy
CPT/HCPCS: 36415; 70450; 80053; 82947; 84484; 85025; 85610; 93005; 93010; 99285-25; J7030

== ENCOUNTER 2021-08-16 09:52 | Inpatient (IN) | payer OTHER ==
[~2021-08-16] VITALS: Ht 180.3 cm; Wt 87.5 kg
[~2021-08-16 09:52] MED LIST changes: +ACET500 PO; +FERSU300 PO; +MIRALAX17 GM PO; +Pravastatin Sod80 MG PO; +Vitamin D1000 UNI1 PO; -Vitamin D2000 UNIT PO; +[UNRECOGNIZED DRUG - CODE] PO
[2021-08-16 10:26] LABS: BASOPHILS ABSOLUTE AUTO 0.03 K/mm3 (0.00-0.23); BASOPHILS PERCENT AUTO 1 % (0-2); EOSINOPHILS ABSOLUTE AUTO 0.03 K/mm3 (0.00-0.68); EOSINOPHILS PERCENT AUTO 1 % (0-6); Hematocrit 27.7 % (37.0-53.0); IMMATURE GRAN ABSOLUTE AUTO 0.02 K/mm3 (0.00-0.10); IMMATURE GRAN PERCENT AUTO 0 % (0-1); LYMPHOCYTES ABSOLUTE AUTO 0.69 K/mm3 (0.84-5.20); LYMPHOCYTES PERCENT AUTO 11 % (21-46); MONOCYTES ABSOLUTE AUTO 0.57 K/mm3 (0.16-1.47); MONOCYTES PERCENT AUTO 9 % (4-13); Mean Corpuscular HGB 32.1 pg (26.0-34.0); Mean Corpuscular HGB Conc 32.5 g/dL (31.5-36.5); Mean Corpuscular Volume 99 fL (80-100); Mean Platelet Volume 10.1 fL (9.1-12.4); NEUTROPHILS PERCENT AUTO 78 % (41-73); Platelet Count 139 K/mm3 (150-400); RDW Coefficient Variation 13.8 % (11.7-14.2); RDW Standard Deviation 50.1 fL (35.1-46.3); White Blood Cell Count 6.14 K/mm3 (4.00-11.30)
[2021-08-16 10:44] LABS: Alanine Aminotransfer (ALT/SGP 15 U/L (12-78); Albumin, Blood 2.5 g/dL (3.4-5.0); Albumin/Globulin Ratio 0.8 (0.8-1.8); Alk Phos 55 U/L (50-136); Anion Gap 4 mmol/L (6-16); Aspartate Aminotrans (AST/SGOT 13 U/L (12-37); Bilirubin, Total 0.6 mg/dL (0.1-1.0); Blood Urea Nitrogen 21 mg/dL (8-24); Bun/Creatinine Ratio 20.2 (12.0-20.0); CO2, Blood 27 mmol/L (21-32); Calcium, Blood 8.4 mg/dL (8.5-10.1); Chloride, Blood 110 mmol/L (98-108); Creatinine, Blood 1.04 mg/dL (0.60-1.20); Glomerular Filtration Rate >60 (60-); Glucose, Blood 163 mg/dL (70-99); Sodium, Blood 141 mmol/L (136-145); Total Protein, Blood 5.5 g/dL (6.4-8.2)
[2021-08-16 10:49] LABS: International Normalized Ratio 1.06; Prothrombin Time Results 11.1 Sec (9.7-11.5)
[2021-08-16 11:57] LABS: SARS-Cov-2 (COVID-19) PCR, MMC NEGATIVE (NEGATIVE)
[2021-08-16 12:28] LABS: U Amphetamine Screen Not Detected; U Barbituate Screen Not Detected; U Benzodiazapine Screen Not Detected; U Buprenorphine Screen Not Detected; U Cannabinoids Screen Not Detected; U Cocaine Screen Not Detected; U Methadone Screen Not Detected; U Methamphetamine Screen Not Detected; U Opiates Screen Not Detected; U Oxycodone Screen Not Detected; U Phencyclidine Screen Not Detected; U Propoxyphene Screen Not Detected
[2021-08-16 12:44] LABS: Source, Urine Clean Catch
[2021-08-16 12:53] LABS: Blood, Urine 1+ (Neg); Glucose Qualitative, Urine Neg (Neg); Ketones, Urine Neg (Neg); Leukocyte Esterase, Urine 3+ (Neg); Nitrite, Urine Pos (Neg); Protein, Urine 2+ (Neg); Urobilinogen, Urine 3+ (Normal)
[2021-08-16 12:57] LABS: Bilirubin, Urine 1+ (Neg)
[2021-08-16 13:11] LABS: Appearance, Urine Hazy (Clear); Color, Urine Yellow (P-Yellow)
[2021-08-16 13:13] LABS: Bacteria Many /hpf; Calcium Oxalate Crystals Few /hpf; Hyaline Casts 0-2 /lpf (0-2); Red Blood Cells, Urine 0-2 /hpf (0-2); Squamous Epithelial Cells Few /hpf (Few)
--- NOTE | 2021-08-16 20:58 | NUR ---
PATIENT IS A NEW ADMIT FROM THE ED. FOUR PERSON TRANFER FROM GURNEY TO BED. ALERT TO SELF AND BROTHER IN ROOM. LEGALLY BLIND AND [place]. BILATERLAL HEARING AIDS PRESENT. BEDREST. HX OF DEMENTIA AND SHORT TERM MEMORY LOSS. KEEP REPEATING TO BROTHER STAYING IN ROOM "WHERE AM I" AND BROTHER ANSWERS HIM EACH TIME. REPORTS SPOUSE IS LEGALY BLIND AND MEALS ON WHEELS COMES TO HOUSE. BROTHER CAREGIVER. PACEMAKER RUC. BROTHER AND PATIENT ORIENTED TO ROOM AND CALL LIGHT SYSTEM. BROTHER WILL STAY TO ANSWER QUESTIONS. DENIES PAIN, SOB, AND N/V. ON ROOM AIR. WCTM.
--- NOTE | 2021-08-17 01:22 | NUR ---
PATIENT SLEEPING IN BED. HAD ONE XL BLACK TARRY FORMED BOWL MOVEMENT. WCTM
--- NOTE | 2021-08-17 04:18 | NUR ---
SHIFT SUMMARY PATIENT HAD NO ACUTE CHANGES OBSERVED. ALERT TO SELF AND BROTHER. CONFUSED T/O SHIFT WITH SHORT TERM MEMORY LOSS REPEATING SAME STATEMENT "WHERE AND I" TO BROTHER WHEN ALREADY ANSWERED. HX VASCULAR DEMENTIA. BEDREST AND TWO ASSIST TO BSC. XL BLACK TARRY FORMED STOOL THIS SHIFT. DENIES CHEST PAIN, SOB, AND N/V. VSS/AFEBRILE. PACEMAKER RU CHEST. ROOM AIR. LEGALLY BLIND. BROTHER STAYED IN ROOM TO HELP ANSWER QUESTIONS FOR PATIENT BEING PRIMARY CAREGIVER. CALL LIGHT IN REACH. BED IN LOWEST POSITION AND BED ALARM ACTIVATED. WILL CONTINUE TO MONITOR UNTIL DAY SHIFT NURSE ASSUMES CARE.
[2021-08-17 05:05] LABS: BASOPHILS ABSOLUTE AUTO 0.03 K/mm3 (0.00-0.23); BASOPHILS PERCENT AUTO 1 % (0-2); EOSINOPHILS ABSOLUTE AUTO 0.05 K/mm3 (0.00-0.68); EOSINOPHILS PERCENT AUTO 1 % (0-6); Hematocrit 28.1 % (37.0-53.0); Hemoglobin 9.1 g/dL (13.5-17.5); IMMATURE GRAN ABSOLUTE AUTO 0.02 K/mm3 (0.00-0.10); IMMATURE GRAN PERCENT AUTO 0 % (0-1); LYMPHOCYTES ABSOLUTE AUTO 0.92 K/mm3 (0.84-5.20); LYMPHOCYTES PERCENT AUTO 18 % (21-46); MONOCYTES ABSOLUTE AUTO 0.52 K/mm3 (0.16-1.47); MONOCYTES PERCENT AUTO 10 % (4-13); Mean Corpuscular HGB 31.7 pg (26.0-34.0); Mean Corpuscular HGB Conc 32.4 g/dL (31.5-36.5); Mean Corpuscular Volume 98 fL (80-100); Mean Platelet Volume 9.9 fL (9.1-12.4); NEUTROPHILS ABSOLUTE AUTO 3.62 K/mm3 (1.96-9.15); NEUTROPHILS PERCENT AUTO 70 % (41-73); Platelet Count 139 K/mm3 (150-400); RDW Coefficient Variation 14.2 % (11.7-14.2); RDW Standard Deviation 50.8 fL (35.1-46.3); Red Blood Cell Count 2.87 M/mm3 (4.30-5.90); White Blood Cell Count 5.16 K/mm3 (4.00-11.30)
[2021-08-17 05:43] LABS: Anion Gap 3 mmol/L (6-16); Blood Urea Nitrogen 18 mg/dL (8-24); Bun/Creatinine Ratio 19.7 (12.0-20.0); CO2, Blood 27 mmol/L (21-32); Calcium, Blood 8.2 mg/dL (8.5-10.1); Chloride, Blood 112 mmol/L (98-108); Creatinine, Blood 0.91 mg/dL (0.60-1.20); Glomerular Filtration Rate >60 (60-); Glucose, Blood 140 mg/dL (70-99); Magnesium, Blood 1.9 mg/dL (1.6-2.4); Potassium, Blood 3.8 mmol/L (3.5-5.5); Sodium, Blood 142 mmol/L (136-145)
--- NOTE | 2021-08-17 17:28 | NUR ---
SHIFT SUMMARY PT UP TO RECLINER THIS SHIFT. MODERATE ASSISTANCE NEEDED HE IS BLIND. PT EXTREMELY FORGETFUL AND ASKS THE SAME QUESTIONS OVER AND PVER AGAIN. PT BROTHER, MARIA DEL CARMEN IN ROOM AND WILL BE STAYING OVERNIGHT TO HELP WITH PT CARE. POSTIIVE BLOOD CULTURES REPORTED TO DR. GIRON TODAY. PT STATES HE IS "FEELING BETTER" AND MARIA DEL CARMEN AGREES THAT HE HAS IMPROVED. BED ALARM AND CHAIR ALARM IN USE PT IS IMPULSIVE AND FORGETFUL. NO OTHER ACUTE CHANGES IN ASSESSMENT AT THIS TIME. VS REVIEWED. PT UP IN RECLINER VISITING WITH HIS BROTHER AT THIS TIME.
--- NOTE | 2021-08-18 04:00 | NUR ---
SHIFT SUMMARY PATIENT IMPULSIVE AND OOB ATTEMPTS STANDING ACTIVATING BED ALARM. HOSPITALIST DR HUERTA ORDERED RENNY VEST. LEGALLY BLIND AND [place] WITH HX OF DEMENTIA. 1-2 ASSIST TO BSC. TAKES MEDICATION WHOLE IN WATER. BROTHER STAYING IN ROOM HAVING TAKEN HIS HEARING AIDS OUT. PUT THEM BACK IN ON OOB ATTEMPTS. PIV REMAINS INTACT. PACEMAKER RU CHEST. VSS/AFEBRILE. DENIES CHEST PAIN, SOB, AND N/V. CALL LIGHT IN REACH. BED IN LOWEST POSITION AND ALARM ACTIVATED. WILL CONTINUE TO MONITOR UNTIL DAY SHIFT NURSE ASSUMES CARE.
--- NOTE | 2021-08-18 18:16 | NUR ---
SHIFT SUMMARY A/OX2, LEGALLY BLIND. PLEASANT AND COOPERATIVE WITH CARE. C/O PAIN TO R. KNEE, XRAY COMPLETED THIS SHIFT. 1 ASSIST WITH URINAL/BSC. BROTHER AT BEDSIDE TO HELP WITH CARE. VSS, NO ACUTE CHANGES AT THIS TIME. BED IN LOWEST POSITION WITH CALL LIGHT IN REACH. WILL CONTINUE TO MONITOR AND REPORT TO ONCOMING RN.
--- NOTE | 2021-08-19 05:01 | NUR ---
SHIFT SUMMARY NO ACUTE CHANGES THIS SHIFT. AOX2-SELF, FAMILY, FOLLOWING SIMPLE DIRECTIONS. CONFUSED-HX DEMENTIA. VSS. DENIES PAIN, N/V OR SOB. PT INCONTINENT, CHANGED PRN. BROTHER MARIA DEL CARMEN @BEDSIDE T/O NIGHT. PLEASENT & COOPERATIVE c CARE. BED ALARM & CALL LIGHT IN PLACE, WILL CONTINUE TO MONITOR.
--- NOTE | 2021-08-19 17:54 | NUR ---
Shift Summary A/O to self and family. 1p FWW c gait to bsc and chair. Pleasant/cooperative. TELLER. Brother at bedside t/o day. Able to feed self. Denies pain, nausea, vomiting, diarrhea. Follows command well. No acute concerns. WCTM.
--- NOTE | 2021-08-20 06:04 | NUR ---
SHIFT SUMMARY PT REMAINS PLEASANTLY CONFUSED. BROTHER MARIA DEL CARMEN AT BEDSIDE THROUGHOUT THE NIGHT. MARIA DEL CARMEN ASSISTS PT WITH URINAL AND MOST NEEDS. PT CONTINENT/INCONTINENT. PT IS LEGALLY BLIND AND [place]. URINE HAS A STRONG ODOR TO IT. PT DENIES PAIN. BED ALARM REMAINED ON FOR SAFETY. NO ACUTE CHANGES THIS EVENING. VITAL SIGNS STABLE.
[2021-08-20] MEDS ORDERED: DOXY100 PO (14:30)
--- NOTE | 2021-08-20 15:02 | NUR ---
Discharge Summary Discharging to home with HH and parts room assistant caregiver (brother) assist. Reviewed d/c papers with Constantino (brother/CG), copy given. No questions at this time. [place] [facility] Escorted by SALES ACCOUNT SPECIALIST via w/c, belongings sent home. IV removed, WNL. Denies pain this shift. Evaluated by PT today. Up in chair and in room with 1p assist/gait.
--- NOTE | 2021-08-20 17:28 | NUR ---
PER CHART REVIEW WITH DR. DUGGAN, PT. APPROPRIATE FOR DISCHARGE. PT. HAS ALL DME NEEDED AT HOME. CAREGIVER ASSISTANCE AND ALSO BROTHER IN HOME WELL. PT. AND MARIA DEL CARMEN DENIED ANY ADDITIONAL NEEDS. MARIA DEL CARMEN WAS INITIALLY VERY RESISTANT TO SCHEDULING WITH PCP. HE STATES THAT [facility] AFTER FURTHER DISCUSSION, HE WAS AGREEABLE. DENIED ANY BARRIERS TO CARE OR CONCERNS FOR SAFETY AT HOME. SCHEDULED FOR HOSPITAL F/U ON 08/25/21 AT 11 AM. ADVISED MARIA DEL CARMEN THAT [facility] WILL BE CALLING TO CHECK-IN.
== END 2021-08-20 14:57 | disposition home health service (06) | DRG 872 ==
LOC: ER 09:52 → MEDS 16:45
PROVIDERS: Physician Assistant; ADMIT Internal Medicine
PROC: 4B02XSZ Measurement of Cardiac Pacemaker, External Approach (ICD-10-PCS; principal; 2021-08-16)
DX: A41.1 Sepsis due to other specified staphylococcus (principal); N39.0 Urinary tract infection, site not specified; G93.49 Other encephalopathy; I95.9 Hypotension, unspecified; Z20.822 Contact with and (suspected) exposure to COVID-19; I48.91 Unspecified atrial fibrillation; I49.5 Sick sinus syndrome; E11.9 Type 2 diabetes mellitus without complications; I25.10 Atherosclerotic heart disease of native coronary artery without angina pectoris; N40.0 Benign prostatic hyperplasia without lower urinary tract symptoms; F01.50 Vascular dementia, unspecified severity, without behavioral disturbance, psychotic disturbance, mood disturbance, and anxiety; E78.5 Hyperlipidemia, unspecified; Z28.21 Immunization not carried out because of patient refusal; H54.8 Legal blindness, as defined in USA; I10 Essential (primary) hypertension; Z88.0 Allergy status to penicillin; Z88.1 Allergy status to other antibiotic agents; Z88.5 Allergy status to narcotic agent; Z88.8 Allergy status to other drugs, medicaments and biological substances; Z79.82 Long term (current) use of aspirin; Z79.84 Long term (current) use of oral hypoglycemic drugs; Z79.899 Other long term (current) drug therapy; Z95.1 Presence of aortocoronary bypass graft; Z87.891 Personal history of nicotine dependence; Z95.0 Presence of cardiac pacemaker; Z98.890 Other specified postprocedural states; Z86.73 Personal history of transient ischemic attack (TIA), and cerebral infarction without residual deficits
CPT/HCPCS: 36415; 70450; 71046; 73562-RT; 74176; 80048; 80053; 81001; 82550; 82947; 83605; 83735; 83880; 84484; 85025; 85610; 86850; 86900; 86901; 87040; 87077; 87086; 87186; 93005; 93010; 96365; 96366; 96367; 97162; 97530; 99285-25; A9270; G0480; J0696; J1650; J1956; J7030; U0004